=== PATIENT | male | born 1995 | race Hispanic/Latino ===

== ENCOUNTER 2024-02-15 09:33 | Emergency (ER) | payer SELFPAY ==
[2024-02-15 09:37] VITALS: BP 128/81
--- NOTE | 2024-02-15 09:51 | ED.MUSCINJ ---
HPI-Injury
<Anai Cenra MD, Resident - Last Filed: 02/15/24 12:42>
General
Chief Complaint: Fall
Time Seen by Provider: 02/15/24 09:42
History of Present Illness-Injury
Initial Injury comments:
28-year-old [place] speaking male presented to the ED following a fall. He he is accompanied by family/friend who states that the patient was fixing a ceiling and was standing on top of the ladder which was 8 feet high from the ground , he
fell, hitting his head multiple times and landed on his left shoulder. The patient complains of mild headache and left shoulder pain. Denies nausea vomiting dizziness or blurry vision there was no loss of conscious he is not on any blood thinners
or other medications.
Review of Systems
<Anai Cerna MD, Resident - Last Filed: 02/15/24 12:42>
Review of Systems
Musculoskeletal: Reports other (Left shoulder pain)
Phy Exam
<Anai Cerna MD, Resident - Last Filed: 02/15/24 12:42>
General Physical Exam
General Presentation: well appearing and no apparent distress
General Habitus: normal
General Mental: alert
Eye Exam
Eye Exam: PERRL and EOMI (mild dizzy with eye movement )
Cardiovascular Exam
Cardiovascular Exam: regular rate/rhythm
Pulmonary Exam
Pulmonary Exam: lungs clear and other (ecchymosis on left side of chest )
Gastrointestinal Exam
Gastrointestinal Exam: non tender, soft, non distended and no cva tenderness
Neurological Exam
Neurological Exam: alert, oriented x3, no motor deficits and no sensory deficits
Injury Course
<Anai Cerna MD, Resident - Last Filed: 02/15/24 12:42>
Orders/Labs/Results
Orders:
Orders
02/15/24 10:01
CT Head W/o Iv Contrast Urgent
Comment:
Reason For Exam: fall, headaches
02/15/24 10:05
Cervical Collar- Treatment ONCE
Collar Type: Hard Cervical Collar
02/15/24 10:06
Ribs, Left 3 View W/PA Chest CR [CR Ribs-left 3 Vw W/pa Chest] Urgent
Comment:
Reason For Exam: left sided rib pain, fall
02/15/24 10:09
Shoulder, Left 2 View CR [CR Shoulder - Left Min 2 View*] Urgent
Comment:
Reason For Exam: fall, L shoulder pain
02/15/24 10:16
Cervical Spine wo Contrast CT [CT Cervical Spine W/o Iv Contr] Urgent
Comment:
Reason For Exam: fall from 8 feet
<Jaqueline Daigle MD - Last Filed: 02/15/24 10:16>
Orders/Labs/Results
Orders:
Orders
02/15/24 10:01
CT Head W/o Iv Contrast Urgent
Comment:
Reason For Exam: fall, headaches
02/15/24 10:05
Cervical Collar- Treatment ONCE
Collar Type: Hard Cervical Collar
02/15/24 10:06
Ribs, Left 3 View W/PA Chest CR [CR Ribs-left 3 Vw W/pa Chest] Urgent
Comment:
Reason For Exam: left sided rib pain, fall
02/15/24 10:09
Shoulder, Left 2 View CR [CR Shoulder - Left Min 2 View*] Urgent
Comment:
Reason For Exam: fall, L shoulder pain
02/15/24 10:16
Cervical Spine wo Contrast CT [CT Cervical Spine W/o Iv Contr] Urgent
Comment:
Reason For Exam: fall from 8 feet
<Anai Cerna MD, Resident - Last Filed: 02/15/24 12:42>
*Critical Care Note
Total Time (30-74mins, 75-104mins- exclusive of procedures): Not Applicable
<Anai Cerna MD, Resident - Last Filed: 02/15/24 12:42>
Update Note
Update Note:
28-year-old male presented to the ED following a fall from 8 feet down the stairs.
Differential diagnosis #1 subdural/epidural hematoma #2 splenic hematoma #3 pneumothorax/hemothorax #4 rib fracture
On physical exam, the patient is alert and speaking in full sentences, his oxygen status 97% on room air, blood pressure is 128/81, stable. She denies shortness of breath, chest pain, motor weakness or neck pain. He does have a kind of most
described at the left side of the chest. And complaints of pain around the sixth or seventh rib. There is no abdominal tenderness, costovertebral angle tenderness, rebound or guarding. His brachial and radial pulses are 2+. He experiences
dizziness with eye movements following the pain but denies any severe headache stating that he does have a mild headache at 3-5/10. He also reports left shoulder pain with abduction to 90 degrees and above. We have ordered a CT scan of the head
and cervical spine as well as chest x-ray to rule out pneumothorax or hemothorax. A CT scan of the abdomen and pelvis is on hold as abdominal exam was reassuring. All imaging were unremarkable. Plan is to discharge the patient advised him to
take ibuprofen as needed for pain. Recommended if he experiences any pain abdominal pain, vomiting, nausea, severe headache in the next 24 to 48 hours he should return to the ED immediately.
Head CT
FINDINGS:
The ventricles and sulci are normal in size and configuration. The periventricular, subcortical, and deep white matter is unremarkable. No focal regions of hypoattenuation. There is no mass effect. There are no findings of acute transcortical
infarction. No intra or extra-axial hemorrhage.
The calvarium is unremarkable. The orbits are unremarkable. Minimal mucosal thickening and opacification of the bilateral ethmoid sinuses. Other paranasal sinuses are clear. The mastoid air cells are clear.
Cervical spine CT
FINDINGS:
The spine is in anatomic alignment.
The vertebral body heights and discs spaces are maintained. No significant degenerative changes.
The prevertebral soft tissues are unremarkable..
Shoulder X ray :
FINDINGS:
No fractures, dislocations, or suspicious bony abnormalities. Glenohumeral and acromioclavicular joints are within normal limits. No gross soft tissue abnormality.
Ribs with chest x-ray:
FINDINGS:
CHEST: The lungs are clear. No pleural effusions or pneumothorax. Cardiac and mediastinal contours are within normal limits.
LEFT RIBS: No displaced rib fractures or other osseous abnormalities.
ED Attending Note
<Anai Cerna MD, Resident - Last Filed: 02/15/24 12:42>
-
Portions of this chart may have been created with voice recognition software.� Occasional wrong word or��sound alike� substitutions may have occurred due to the inherent limitations of voice recognition software.
<Jaqueline Daigle MD - Last Filed: 02/15/24 10:16>
ED Attending Note
Patient seen and examined by attending physician: Yes
I performed a history and physical exam of patient and discussed management with resident, I reviewed resident's note and agree with documented findings and plan of care.: Yes
ED Attending Note:
Patient reports that he fell down an 8 foot ladder and then fell down a flight of steps prior to arrival. Patient reports he did hit his head and has a mild headache but denies nausea and vomiting. Patient is fully awake, alert and answering all
questions. Patient denies shortness of breath but does report a mild soreness along his left lateral and lower rib cage area. He denies abdominal pain and lightheadedness. Patient has point tenderness of left parietal and his occipital scalp
area. He has no midline tenderness of cervical spine. Patient's heart sounds regular. His lungs are clear without any splinting with breathing. Equal breath sounds bilaterally. Patient does have abrasion and ecchymoses of his left lateral rib
cage area. Patient's abdomen palpated for a while with no distention or tenderness at all throughout. I did specifically palpate his spleen and liver and he has absolutely no tenderness in those areas of his upper abdomen. Patient has no flank
tenderness and denies bloody urine. Patient has no vertebral spine tenderness.
Discharge Plan
Departure
Patient Disposition: Home (Routine Discharge)
Date of Disposition: 02/15/24
Time of Disposition: 12:41
Patient with high blood pressure during this ER visit?: No
Discharge Problem:
Fall (on) (from) other stairs and steps, initial encounter, Left anterior shoulder pain
Referrals:
NONE,* [Family Provider] -
Interventions
Interventions:
*Risk Screen - Suicide Last Done: 02/15/24 09:38
*General Assessment Last Done: 02/15/24 09:38
*Neglect/Abuse Screening Last Done: 02/15/24 09:38
ED- Fall Risk Assessment Last Done: 02/15/24 09:57
ED-Musculoskeletal Assessment Last Done: 02/15/24 09:57
ED- Neurological Assessment Last Done: 02/15/24 09:57
ED-Skin Assessment Last Done: 02/15/24 09:57
Discharge Date and Time
Print Language: ICELANDIC
[2024-02-15 12:50] VITALS: BP 124/74
== END 2024-02-15 12:54 | disposition home or self-care (01) ==
LOC: EMR 09:33
PROVIDERS: EMERGENCY PHYSICIAN Emergency Medicine
DX: M25.512 Pain in left shoulder (principal); W10.8XXA Fall (on) (from) other stairs and steps, initial encounter
CPT/HCPCS: 99284; 70450; 71101; 72125; 73030

== ENCOUNTER → 2025-03-13 14:49 | Outpatient (REF) | payer OTHER, SELFPAY | LOC: HWRAD 14:49 | PROVIDERS: ATTENDING PHYSICIAN Family Medicine | DX: G44.52 New daily persistent headache (NDPH) (principal) | CPT/HCPCS: 70450 ==

== ENCOUNTER → 2025-03-18 08:18 | Outpatient (REF) | payer OTHER, SELFPAY ==
[2025-03-18 09:39] LABS: Hematocrit 45.5 % (39.0-52.0); Hemoglobin 15.7 g/dL (13.0-18.0); Mean Corp Hgb Conc. 34.5 g/dL (33.0-37.0); Mean Corpuscular Volume 87.3 fL (80.0-94.0); Nucleated Red Blood Cells % 0 % (-); Platelet Count 189 10^3/uL (130-400); Red Cell Dist. Width 12.1 % (11.5-14.5)
[2025-03-18 10:48] LABS: ALT (SGPT) 25 U/L (0-50); AST (SGOT) 26 U/L (17-59); Albumin 4.4 g/dl (3.5-5.0); Alkaline Phosphatase 87 U/L (38-126); Blood Urea Nitrogen 15 mg/dl (9-20); Calcium 9.2 mg/dl (8.4-10.2); Carbon Dioxide 25 mmol/L (22-30); Chloride 107 mmol/L (98-107); Glucose 96 mg/dl (70-99); HDL Cholesterol 59 mg/dl; LDL Cholesterol, Calculated 117 mg/dl; Potassium 3.9 mmol/L (3.5-5.1); Sodium 140 mmol/L (135-145); Total Protein 6.7 g/dl (6.3-8.2); Very Low Density Lipoprotein 13 mg/dl (0-30); eGFR > 60.00
== END ==
LOC: CLINIC 08:18
PROVIDERS: ATTENDING PHYSICIAN Family Medicine
DX: R51.9 Headache, unspecified (principal)
CPT/HCPCS: 36415; 80053; 80061; 85025